=== PATIENT | male | born 1970 | race Caucasian/White ===

== ENCOUNTER 2024-09-26 15:41 | Inpatient (IN) | payer BC ==
[~2024-09-26] VITALS: Ht 190.5 cm; Wt 96.2 kg
[2024-09-26 17:08] LABS: BASOPHILS % (AUTO) 0.5 % (0.0-2.0); EOSINOPHILS # (AUTO) 0.1 K/uL (0.0-0.7); HEMATOCRIT 45.1 % (36.7-47.1); HEMOGLOBIN 15.5 g/dL (12.5-16.3); LYMPHOCYTES # (AUTO) 0.3 K/uL (0.8-4.8); LYMPHOCYTES % (AUTO) 5.9 % (20.5-51.5); MEAN CORPUSCULAR HEMOGLOBIN 31.6 uug (23.8-33.4); MEAN CORPUSCULAR HGB CONC 34 g/dL (32.5-36.3); MEAN CORPUSCULAR VOLUME 92.2 fL (73.0-96.2); MONOCYTES # (AUTO) 0.4 K/uL (0.1-1.30); MONOCYTES % (AUTO) 7.5 % (0.0-11.0); NEUTROPHILS # (AUTO) 4.3 K/uL (1.8-8.9); NEUTROPHILS % (AUTO) 85.1 % (38.5-71.5); PLATELET COUNT (AUTO) 208 K/uL (152-348); RED CELL DISTRIBUTION WIDTH 12.5 % (12.1-16.2); WHITE BLOOD COUNT (AUTO) 5.1 K/uL (3.6-10.2)
[2024-09-26 17:27] LABS: ALANINE AMINOTRANSFERASE 21 U/L (16-63); ALBUMIN 3.2 g/dL (3.4-5.0); ALKALINE PHOSPHATASE 63 U/L (50-136); ASPARTATE AMINOTRANSFERASE 11 U/L (15-37); BILIRUBIN,DIRECT 0.1 mg/dL (0.0-0.2); BILIRUBIN,TOTAL 0.5 mg/dL (0.2-1.0); CALCIUM 8.8 mg/dL (8.5-10.1); CARBON DIOXIDE 27 mmol/L (21-32); CHLORIDE 107 mmol/L (98-107); CREATININE 1.5 mg/dL (0.6-1.3); GLUCOSE 165 mg/dL (74-106); POTASSIUM 4.3 mmol/L (3.5-5.1); SODIUM SERUM 143 mmol/L (136-145); TOTAL PROTEIN, SERUM 6.4 g/dL (6.4-8.2); UREA NITROGEN, BLOOD 22 mg/dL (7-18)
[2024-09-26 17:35] LABS: ACETAMINOPHEN < 2.0 ug/mL (10-30)
[2024-09-26 17:37] LABS: DIFFERENTIAL COMMENT 1
[2024-09-26 17:53] LABS: *BLOOD, URINE NEGATIVE (NEGATIVE); *CLARITY,URINE CLEAR (CLEAR); *COLOR,URINE AMBER (YELLOW); *KETONES,URINE TRACE (NEGATIVE); *PROTEIN,URINE 1+ (NEGATIVE); LEUKOCYTE ESTERASE ,URINE NEGATIVE (NEGATIVE); NITRITE, URINE NEGATIVE (NEGATIVE); PH,URINE 5.5 (5.0-8.0); UGLUCOSE NEGATIVE (NEGATIVE)
[2024-09-26 18:05] LABS: *BILIRUBIN,URIN 1+ (NEGATIVE)
[2024-09-26 18:21] LABS: *AMPHETAMINE, URINE NEGATIVE (NEGATIVE); *BARBITURATE, URINE NEGATIVE (NEGATIVE); *BENZODIAZEPINE, URINE NEGATIVE (NEGATIVE); *CANNABINOID, URINE POSITIVE (NEGATIVE); *COCCAINE, URINE NEGATIVE (NEGATIVE); *OPIATE, URINE NEGATIVE (NEGATIVE); *PHENCYCLIDINE SCREEN,URINE NEGATIVE (NEGATIVE); FENTANYL, URINE NEGATIVE (NEGATIVE)
[2024-09-26 18:51] LABS: ETHANOL < 3 MG/DL (0-10)
[2024-09-26] MEDS: DEXAMETHASONE SOD PHOSPHATE 4 MG INJ IV ONE (19:15)
[2024-09-26] MEDS ORDERED: ESCI5SOL2 PO (19:29)
[2024-09-26] MEDS ORDERED: SULF1TAB48 PO (19:29)
[2024-09-26] MEDS ORDERED: OMEP20TA5 PO (19:29)
[2024-09-26] MEDS ORDERED: LACO50TA2 PO (19:29)
[2024-09-26] MEDS ORDERED: DEXA4TAB PO (19:29)
[2024-09-26] MEDS ORDERED: ACETAMINOPHEN 325 MG TABLET PO PRN (19:30)
[2024-09-26] MEDS ORDERED: ONDANSETRON 4 MG/2 ML VIAL IV PRN (19:30)
[2024-09-26] MEDS ORDERED: LORAZEPAM 2 MG/1 ML VIAL IV PRN (19:30)
[2024-09-26] MEDS ORDERED: MAGNESIUM HYDROXIDE 30 ML LIQUID UDC PO PRN (19:30)
[2024-09-26] MEDS ORDERED: SULFAMETH/TRIMETH 800/160 MG TABLET PO SCH (19:45)
[2024-09-26 20:04] LABS: BACTERIA,URINE FEW /HPF (NONE SEEN); CALCIUM OXALATE CRYSTALS,UR FEW /HPF (NONE SEEN); WBC,URINE 0-3 /HPF (0-3)
[2024-09-26] MEDS: LACOSAMIDE 100 MG in IV NORMAL SALINE 50 ML IV SCH (21:00)
[2024-09-26] MEDS: LACOSAMIDE IV SCH (21:00)
[2024-09-26] MEDS: NORMAL SALINE IV SCH (21:00)
[2024-09-26] MEDS ORDERED: DEXAMETHASONE SOD PHOSPHATE 4 MG INJ ONE (21:26)
[2024-09-26 23:03] VITALS: BP 123/77; TEMP 98.1; O2SAT 92
[2024-09-27 05:12] VITALS: BP 106/69; TEMP 98.1; O2SAT 96
[2024-09-27 06:36] LABS: BASOPHILS % (AUTO) 0.2 % (0.0-2.0); EOSINOPHILS % (AUTO) 0.5 % (0.0-7.0); HEMATOCRIT 41.6 % (36.7-47.1); HEMOGLOBIN 14.8 g/dL (12.5-16.3); LYMPHOCYTES # (AUTO) 0.4 K/uL (0.8-4.8); LYMPHOCYTES % (AUTO) 8.1 % (20.5-51.5); MEAN CORPUSCULAR HEMOGLOBIN 32.2 uug (23.8-33.4); MEAN CORPUSCULAR HGB CONC 36 g/dL (32.5-36.3); MEAN CORPUSCULAR VOLUME 90.6 fL (73.0-96.2); MONOCYTES # (AUTO) 0.3 K/uL (0.1-1.30); MONOCYTES % (AUTO) 7.3 % (0.0-11.0); NEUTROPHILS % (AUTO) 83.9 % (38.5-71.5); PLATELET COUNT (AUTO) 214 K/uL (152-348); RED BLOOD CELL COUNT(AUTO) 4.59 MIL/uL (4.06-5.63); RED CELL DISTRIBUTION WIDTH 12.6 % (12.1-16.2); WHITE BLOOD COUNT (AUTO) 4.8 K/uL (3.6-10.2)
[2024-09-27 06:47] LABS: CALCIUM 8.6 mg/dL (8.5-10.1); CREATININE 1.2 mg/dL (0.6-1.3); MAGNESIUM 2.2 mg/dL (1.8-2.4); PHOSPHOROUS 4.6 mg/dL (2.5-4.9); POTASSIUM 3.8 mmol/L (3.5-5.1)
[2024-09-27 07:22] LABS: DIFFERENTIAL COMMENT 1
[2024-09-27 07:54] VITALS: BP 102/64; TEMP 97.8; O2SAT 94
[2024-09-27] MEDS ORDERED: LACOSAMIDE IV SCH (09:00)
[2024-09-27] MEDS ORDERED: SULFAMETH/TRIMETH 800/160 MG TABLET PO SCH (09:00)
[2024-09-27] MEDS ORDERED: NORMAL SALINE IV SCH (09:00)
[2024-09-27] MEDS ORDERED: LACOSAMIDE 100 MG in IV NORMAL SALINE 50 ML IV SCH (09:00)
[2024-09-27] MEDS: ESCITALOPRAM OXALATE 10 MG TABLET PO SCH (09:03)
[2024-09-27] MEDS: DEXAMETHASONE 4 MG TABLET PO SCH (09:03)
[2024-09-27 11:25] VITALS: BP 116/65; TEMP 97.6; O2SAT 95
[2024-09-27] MEDS: LACOSAMIDE 50 MG TABLET PO SCH (11:52)
[2024-09-27] MEDS ORDERED: DEXA4TAB68 PO (13:09)
[2024-09-27] MEDS ORDERED: LACO50TA2 PO ×2 (13:09→13:16)
== END 2024-09-27 13:55 | disposition home or self-care (01) | DRG 100 ==
LOC: ER 15:41 → TELE3 22:04 → MEDSURG3 09-27 10:20
PROVIDERS: ADMIT Nurse Practitioner Family; ATTEND Nurse Practitioner Family
DX: G40.909 Epilepsy, unspecified, not intractable, without status epilepticus (principal); G93.41 Metabolic encephalopathy; G93.6 Cerebral edema; C71.1 Malignant neoplasm of frontal lobe; N17.8 Other acute kidney failure; E44.1 Mild protein-calorie malnutrition; J34.1 Cyst and mucocele of nose and nasal sinus; E88.09 Other disorders of plasma-protein metabolism, not elsewhere classified; Z92.21 Personal history of antineoplastic chemotherapy; K21.9 Gastro-esophageal reflux disease without esophagitis; Z79.899 Other long term (current) drug therapy; Z92.3 Personal history of irradiation; R20.1 Hypoesthesia of skin; R73.9 Hyperglycemia, unspecified; R53.1 Weakness; R55 Syncope and collapse
CPT/HCPCS: 36415; 70450; 71045; 83605; 83735; 84100; 84484; 85025; 85730; 87040; 93307; A4606; A4663; G0378; G0480; J1100; J8540